=== PATIENT | male | born 1960 | race African-American/Black ===

== ENCOUNTER 2023-08-05 10:12 | Emergency (ER) | payer OTHER ==
[2023-08-05 10:21] VITALS: RESP 16; BMI 29.0
[2023-08-05 11:47] LABS: BASO % 0.7 % (0-2.0); EOS % 2.6 % (0-4.5); HEMATOCRIT 42.2 % (35.4-49); HEMOGLOBIN 14.2 GM/dL (11.7-16.9); LYMPH % 36.1 % (8-40); MCH 29.4 pg (25.7-33.7); MCHC 33.7 g/dl (32.0-35.9); MEAN CELL VOLUME 87.3 fl (80-96); MEAN PLT VOLUME 6.9 fl (7.5-11.1); MONO % 13.5 % (3.8-10.2); NEUT % 47.1 % (42.8-82.8); PLATELET COUNT 321 10^3/uL (134-434); RBC 4.83 M/mm3 (4.00-5.60); RDW 14.1 % (11.9-15.9); WHITE BLOOD COUNT 7.7 K/mm3 (4.0-10.0)
[2023-08-05 12:00] LABS: POTASSIUM 5.3 mmol/L (3.5-5.1)
[2023-08-05 12:03] LABS: CALCIUM 8.8 mg/dL (8.5-10.1)
[2023-08-05 12:04] LABS: ALBUMIN 3.1 g/dl (3.4-5.0); BLOOD UREA NITROGEN 14.8 mg/dL (7-18)
[2023-08-05 12:07] LABS: CREATININE 0.9 mg/dL (0.55-1.3)
[2023-08-05 12:08] LABS: TOT PROT 7.4 g/dl (6.4-8.2)
[2023-08-05 12:09] LABS: BILIRUBIN,TOTAL 0.4 mg/dL (0.2-1)
[2023-08-05] MEDS ORDERED: ACETAMINOPHEN INJECTION 100 ML IVPB ONE ×2 (13:09→19:56)
[2023-08-05] MEDS: ACETAMINOPHEN 1000 MG/100 ML BAG IVPB ONE ×2 (13:14→20:02)
[2023-08-05 21:30] VITALS: BP 140/78; PULSE 81; TEMP 97.6
== END 2023-08-06 00:17 | disposition short-term general hospital (02) ==
LOC: JER 10:12
PROC: 3E033NZ Introduction of Analgesics, Hypnotics, Sedatives into Peripheral Vein, Percutaneous Approach (ICD-10-PCS; principal; 2023-08-05)
PROC: 3E033NZ Introduction of Analgesics, Hypnotics, Sedatives into Peripheral Vein, Percutaneous Approach (ICD-10-PCS; 2023-08-05)
DX: H57.12 Ocular pain, left eye (principal); H02.846 Edema of left eye, unspecified eyelid; Z20.822 Contact with and (suspected) exposure to COVID-19
CPT/HCPCS: 36415; 70481-TC; 80053; 85025; 87635; 99285-25; J0131; Q9967

== ENCOUNTER 2024-08-02 14:35 | Emergency (ER) | payer OTHER ==
[2024-08-02 14:45] VITALS: BP 145/74; PULSE 87; RESP 16; TEMP 98; BMI 28.3
== END 2024-08-02 18:05 | disposition short-term general hospital (02) ==
LOC: JER 14:35
DX: H57.12 Ocular pain, left eye (principal); H54.42A5 Blindness left eye category 5, normal vision right eye
CPT/HCPCS: 76512; 99285-25

== ENCOUNTER 2024-08-22 14:47 | Observation (INO) | payer OTHER ==
[2024-08-22 16:25] LABS: ABSOLUTE IMMATURE GRANULOCYTES 0.04 x10^3/uL (0.0-0.031); BASOPHILS # 0.02 x10^3/uL (0.01-0.08); EOSINOPHIL % 0.4 % (0.8-7.0); EOSINOPHILS # 0.04 x10^3/uL (0.04-0.54); HEMATOCRIT 38.9 % (40.1-51.0); HEMOGLOBIN 12.3 g/dL (13.7-17.5); MCHC 31.6 g/dl (32.3-36.5); MEAN CELL VOLUME 89.6 fl (79.0-92.2); MEAN PLT VOLUME 8.6 fl (9.4-12.4); MONOCYTE # 1.26 x10^3/uL (0.30-0.82); MONOCYTE % 14.1 % (5.3-12.2); PLATELET COUNT 277 x10^3/uL (163-337); RDW 14.5 % (12.2-16.4); VENOUS BASE EXCESS 1.5 mmol/L (-2-2); VENOUS O2 SATURATION 25.5 % (70-80); VENOUS PH 7.284 (7.310-7.410)
[2024-08-22 16:39] LABS: URINE APPEARANCE CLEAR; URINE BILIRUBIN NEGATIVE (NEGATIVE); URINE COLOR YELLOW; URINE GLUCOSE (UA) NEGATIVE (NEGATIVE); URINE KETONE TRACE (NEGATIVE); URINE LEUK ESTERASE NEGATIVE (NEGATIVE); URINE NITRITE NEGATIVE (NEGATIVE); URINE PROTEIN NEGATIVE (NEGATIVE)
[2024-08-22 16:44] LABS: INR 1.08 (0.83-1.09); PROTHROMBIN TIME (PATIENT) 11.8 SEC (9.7-13.0)
[2024-08-22 16:46] LABS: COCAINE, UR POSITIVE (NEGATIVE); METHADONE, UR NEGATIVE (NEGATIVE); OPIATES, URI NEGATIVE (NEGATIVE); PHENCYCLIDINE,URINE NEGATIVE (NEGATIVE); URINE AMPHETAMINES NEGATIVE (NEGATIVE); URINE BARBITURATES NEGATIVE (NEGATIVE); URINE BENZODIAZEPINES NEGATIVE (NEGATIVE)
[2024-08-22 16:47] LABS: ACTIVATED PTT 28.5 SECONDS (25.2-36.5)
[2024-08-22 16:51] LABS: POTASSIUM 4.8 mmol/L (3.5-5.1)
[2024-08-22 16:53] LABS: CALCIUM 8.9 mg/dL (8.5-10.1)
[2024-08-22 16:54] LABS: ALBUMIN 2.8 g/dl (3.4-5.0); BLOOD UREA NITROGEN 15.5 mg/dL (7-18); MAGNESIUM 2.3 mg/dL (1.8-2.4)
[2024-08-22 16:57] LABS: CREATININE 0.8 mg/dL (0.55-1.3)
[2024-08-22 16:58] LABS: BILIRUBIN,TOTAL 0.2 mg/dL (0.2-1); TOT PROT 6.2 g/dl (6.4-8.2)
[2024-08-22] MEDS ORDERED: ATORVASTATIN CA 40 MG TABLET (FP) ONE (18:13)
[2024-08-22] MEDS ORDERED: ALBUTEROL SO4 2.5/IPRATROPIUM 0.5 INH SOL 3 ML VIAL.NEB. NEB ONE (18:13)
[2024-08-22] MEDS ORDERED: methylPREDNISolone NA SUCC 125 MG/2 ML VIAL ONE (18:13)
[2024-08-22] MEDS ORDERED: ALBUTEROL SO4 2.5/IPRATROPIUM 0.5 INH SOL 3 ML VIAL.NEB. NEB PRN (19:54)
[2024-08-22] MEDS: SODIUM CHLORIDE 1,000 ML IV SCH ×2 (20:04→22:35)
[2024-08-22] MEDS ORDERED: HEPARIN NA (PORCINE) 5,000 UNITS/ML 1ML VIAL IVPUSH PRN (20:38)
[2024-08-22] MEDS ORDERED: CLOPIDOGREL BISULFATE 75 MG TABLET (FP) ONE (20:45)
[2024-08-22] MEDS ORDERED: ASPIRIN 81 MG CHEWABLE TABLETS ONE (20:46)
[2024-08-22] MEDS: methylPREDNISolone NA SUCC 125 MG/2 ML VIAL IVPB ONE (20:52)
[2024-08-22] MEDS: CLOPIDOGREL BISULFATE 75 MG TABLET (FP) PO ONE (20:52)
[2024-08-22] MEDS: ASPIRIN COATED 81 MG TABLET.EC PO ONE (20:52)
[2024-08-22] MEDS: ALBUTEROL SO4 2.5/IPRATROPIUM 0.5 INH SOL 3 ML VIAL.NEB. NEB ONE (20:52)
[2024-08-22] MEDS: ATORVASTATIN CA 40 MG TABLET (FP) PO ONE (20:52)
[2024-08-22] MEDS ORDERED: ALBUTEROL SO4 HFA INHALER IH PRN (21:33)
[2024-08-22] MEDS ORDERED: HEPARIN NA (PORCINE) 5,000 UNITS/ML 1ML VIAL SQ SCH (22:00)
[2024-08-22] MEDS: FLUTICASONE/SALMETEROL (WIXELA) 100 MCG/50 MCG DISKUS IH SCH (22:34)
[2024-08-22] MEDS: acetaZOLAMIDE 250 MG TABLET PO SCH (22:35)
[2024-08-22] MEDS: ATORVASTATIN CA 40 MG TABLET (FP) PO SCH (22:36)
[2024-08-22] MEDS: INSULIN GLARGINE (LANTUS) 100 UNITS/ML UNITS SQ SCH (22:36)
[2024-08-22] MEDS: HEPARIN INFUSION - 25,000 UNITS/500 ML INFUS.BAG IVPB SCH (23:05)
[2024-08-23 00:30] VITALS: BMI 28.1
[2024-08-23] MEDS: HEPARIN NA (PORCINE) 5,000 UNITS/ML 1ML VIAL IVPUSH PRN (04:03)
[2024-08-23] MEDS: INSULIN ASPART SLIDING SCALE (NOVOLOG) 1 VIAL SQ SCH (06:22)
[2024-08-23 08:13] LABS: HEMATOCRIT 40.5 % (40.1-51.0); HEMOGLOBIN 12.8 g/dL (13.7-17.5); MCHC 31.6 g/dl (32.3-36.5); MEAN CELL VOLUME 89.8 fl (79.0-92.2); MEAN PLT VOLUME 9.3 fl (9.4-12.4); PLATELET COUNT 304 x10^3/uL (163-337); RDW 14.5 % (12.2-16.4)
[2024-08-23 08:14] LABS: INR 1.19 (0.83-1.09); PROTHROMBIN TIME (PATIENT) 13.1 SEC (9.7-13.0)
[2024-08-23 08:29] LABS: POTASSIUM 4.5 mmol/L (3.5-5.1)
[2024-08-23 08:39] LABS: BLOOD UREA NITROGEN 15.6 mg/dL (7-18)
[2024-08-23 08:40] LABS: CALCIUM 8.6 mg/dL (8.5-10.1)
[2024-08-23 08:41] LABS: ALBUMIN 2.8 g/dl (3.4-5.0)
[2024-08-23 08:44] LABS: BILIRUBIN,TOTAL 0.4 mg/dL (0.2-1); TOT PROT 6.5 g/dl (6.4-8.2)
[2024-08-23] MEDS ORDERED: HYDROCHLOROTHIAZIDE 12.5 MG CAPSULE (FP) PO SCH (10:00)
[2024-08-23] MEDS ORDERED: LOSARTAN 50MG/HCTZ 12.5MG 1 TAB PO SCH (10:00)
[2024-08-23] MEDS: NICOTINE 14 MG/24 HOURS TOPICAL PATCH TD SCH (10:35)
[2024-08-23] MEDS: predniSONE 20 MG TABLET (UD) PO SCH (10:35)
[2024-08-23] MEDS: ASPIRIN COATED 81 MG TABLET.EC PO SCH (10:35)
[2024-08-24 07:08] LABS: HEMATOCRIT 37.8 % (40.1-51.0); HEMOGLOBIN 12.1 g/dL (13.7-17.5); MEAN CELL VOLUME 88.9 fl (79.0-92.2); MEAN PLT VOLUME 8.8 fl (9.4-12.4); PLATELET COUNT 287 x10^3/uL (163-337); RDW 14.5 % (12.2-16.4)
[2024-08-24 07:27] LABS: POTASSIUM 3.8 mmol/L (3.5-5.1)
[2024-08-24 07:34] LABS: BLOOD UREA NITROGEN 21.1 mg/dL (7-18); CALCIUM 8.5 mg/dL (8.5-10.1)
[2024-08-24 07:35] LABS: ALBUMIN 2.6 g/dl (3.4-5.0); MAGNESIUM 2.2 mg/dL (1.8-2.4)
[2024-08-24 07:38] LABS: CREATININE 0.9 mg/dL (0.55-1.3); PHOSPHOROUS 3.1 mg/dL (2.5-4.9)
[2024-08-24 07:39] LABS: BILIRUBIN,TOTAL 0.3 mg/dL (0.2-1)
[2024-08-24 07:40] LABS: TOT PROT 5.9 g/dl (6.4-8.2)
[2024-08-24 21:26] VITALS: RESP 17
[2024-08-25 07:38] LABS: HEMOGLOBIN 12.3 g/dL (13.7-17.5); MCHC 32.4 g/dl (32.3-36.5); MEAN CELL VOLUME 88.2 fl (79.0-92.2); MEAN PLT VOLUME 9.4 fl (9.4-12.4); PLATELET COUNT 292 x10^3/uL (163-337); RDW 14.6 % (12.2-16.4)
[2024-08-25 07:55] LABS: POTASSIUM 4.1 mmol/L (3.5-5.1)
[2024-08-25 08:00] LABS: ALBUMIN 2.5 g/dl (3.4-5.0); BLOOD UREA NITROGEN 21.8 mg/dL (7-18)
[2024-08-25 08:02] LABS: PHOSPHOROUS 3.6 mg/dL (2.5-4.9)
[2024-08-25 08:03] LABS: CREATININE 0.9 mg/dL (0.55-1.3)
[2024-08-25 08:04] LABS: BILIRUBIN,TOTAL 0.2 mg/dL (0.2-1); TOT PROT 5.7 g/dl (6.4-8.2)
[2024-08-25 10:46] VITALS: BP 136/82; PULSE 81; TEMP 98.2
== END 2024-08-25 11:24 | disposition home or self-care (01) ==
LOC: JER 14:47 → UNDOADMIN 16:34 → JERBED 16:34 → INTOOBSV 16:34 → J4S 21:37
PROVIDERS: ADMIT Hospitalist; ATTEND Internal Medicine
PROC: 3E033GC Introduction of Other Therapeutic Substance into Peripheral Vein, Percutaneous Approach (ICD-10-PCS; principal; 2024-08-22)
PROC: 3E013VG Introduction of Insulin into Subcutaneous Tissue, Percutaneous Approach (ICD-10-PCS; 2024-08-22)
PROC: 3E0337Z Introduction of Electrolytic and Water Balance Substance into Peripheral Vein, Percutaneous Approach (ICD-10-PCS; 2024-08-22)
DX: G45.9 Transient cerebral ischemic attack, unspecified (principal); G45.8 Other transient cerebral ischemic attacks and related syndromes; F14.90 Cocaine use, unspecified, uncomplicated; I70.8 Atherosclerosis of other arteries; I10 Essential (primary) hypertension; J44.9 Chronic obstructive pulmonary disease, unspecified; E78.5 Hyperlipidemia, unspecified; E11.9 Type 2 diabetes mellitus without complications; H40.9 Unspecified glaucoma
CPT/HCPCS: 0241U-QW; 36415; 70450-TC; 70496-TC; 70498-TC; 70551-TC; 71045-TC-FY; 80053; 80061; 80307; 81003; 82010; 82803; 82962; 83036; 83605; 83690; 83735; 84100; 84443; 84484; 85025; 85027; 85610; 85730; 86850; 86900; 86901; 87086; 93005; 93010; 93306-TC; 93880-TC; 93922; 93926-TC; 93971-TC; 96361; 96365; 96372; 96375; 97116-GP; 97161-GP; 99285-25; G0378; J1644